=== PATIENT | female | born 1960 | race Caucasian/White ===

== ENCOUNTER 2018-05-05 11:37 | Emergency (ER) | payer BC ==
--- NOTE | 2018-05-05 12:37 | ED ---
Neck Pain - HPI Summary HPI Summary: This is scribe Mikael Salas documenting for attending Dr. Enoch Barillas MD. This patient is a 58 year old F presenting to [facility] accompanied by a male with a chief complaint of worsening right sided neck pain radiating to her back, right shoulder, and right arm since yesterday. Pt reports she has been having this pain intermittently since 8 days ago but was treating with Ibuprofen 800mg BID. The pain is no longer treatable with only Ibuprofen. The patient rates the pain 6/10 in severity. Symptoms aggravated by leaning head backwards or forwards , worse at night. Symptoms alleviated by sitting upright. Patient reports right shoulder achiness and numbness in right hand. Patient denies decreased ROM. 5 years ago the pt had left sided neck pain during pilates, was seen and had degenerative changes in cervical vertebrae and a narrowed disc. Pt reports that this pain is not as bad as the pain shes having currently. Pt has an appointment with her PCP in 4 days, didnt want to wait to be seen. Pt lives in [place] and is visiting family on [facility]. PMHX arthritis of neck. [employer]. Pt stopped using Ibuprofen last night. I, Dr. Barillas, personally performed the services described in this documentation as scribed in my presence and it is both accurate and complete. - History of Current Complaint Chief Complaint: EDNeckComplaint Stated Complaint: NECK PAIN Time Seen by Provider: 05/05/18 12:23 Hx Obtained From: Patient Onset/Duration Of Injury/Symptoms: Days - 8 Mechanism Of Injury: No Known Trauma Timing: Intermittent Onset/Duration: Gradual Onset Severity Initially: Moderate Severity Currently: Moderate Pain Intensity: 6 Pain Scale Used: 0-10 Numeric Location: Discrete At: - rt side Character: Sharp Aggravating Factors: Position Alleviating Factors: Position Related History: Previous Neck Injury - left side - Allergies/Home Medications Allergies/Adverse Reactions: Allergies Allergy/AdvReac Type Severity Reaction Status Date / Time No Known Allergies Allergy Verified 05/05/18 12:00 Home Medications: Home Medications Esomeprazole(NF) [Nexium(NF)] 40 mg PO DAILY PRN 05/05/18 [History Confirmed 07/13] Magnesium Citrate 1 tab PO DAILY 05/05/18 [History Confirmed 05/05/18] Multivitamins/Minerals TAB* [Theragran/minerals TAB*] 1 tab PO DAILY 05/05/18 [ History Confirmed 05/05/18] ZyrTEC 10 MG TAB* 10 mg PO DAILY 05/05/18 [History Confirmed 05/05/18] PMH/Surg Hx/FS Hx/Imm Hx History: Denies: Hx Dialysis Musculoskeletal History: Reports: Hx Arthritis Infectious Disease History: No Infectious Disease History: Denies: Traveled Outside the [place] in Last 30 Days - Family History Known Family History: Positive: Other - arthritis - Social History Alcohol Use: Occasionally Alcohol Amount: twice a week Substance Use Type: Reports: None Smoking Status (MU): Never Smoked Tobacco Review of Systems Negative: Fever Positive: Other - right neck pain, back pain, right arm pain, right shoulder pain Positive: Numbness - right hand All Other Systems Reviewed And Are Negative: Yes Physical Exam - Summary Physical Exam Summary: Appearance: The patient is well-nourished in no acute distress and in no acute pain. Skin: The skin is warm and dry and skin color reflects adequate perfusion. HEENT: The head is normocephalic and atraumatic. The pupils are equal and reactive. The conjunctivae are clear and without drainage. Nares are patent and without drainage. Mouth reveals moist mucous membranes and the throat is without erythema and exudate. The external ears are intact. The ear canals are patent and without drainage. The tympanic membranes are intact. Neck: The neck is supple with full range of motion and non-tender. There are no carotid bruits. There is no neck vein distension. Respiratory: Chest is non-tender. Lungs are clear to auscultation and breath sounds are symmetrical and equal. Cardiovascular: Heart is regular rate and rhythm. There is no murmur or rub auscultated. There is no peripheral edema and pulses are symmetrical and equal. Abdomen: The abdomen is soft and non-tender. There are normal bowel sounds heard in all four quadrants and there is no organomegaly palpated. Musculoskeletal: There is no back tenderness noted. Extremities are non-tender with full range of motion. There is good capillary refill. There is no peripheral edema or calf tenderness elicited. Neurological: Patient is alert and oriented to person, place and time. The patient has symmetrical motor strength in all four extremities. Cranial nerves are grossly intact. Deep tendon reflexes are symmetrical and equal in all four extremities. Psychiatric: The patient has an appropriate affect and does not exhibit any anxiety or depression. Triage Information Reviewed: Yes Vital Signs On Initial Exam: Initial Vitals Temp Pulse Resp BP Pulse Ox 98.8 F 62 16 145/83 98 05/05/18 11:53 05/05/18 11:53 05/05/18 11:53 05/05/18 11:53 05/05/18 11:53 Vital Signs Reviewed: Yes Diagnostics - Vital Signs Vital Signs Temp Pulse Resp BP Pulse Ox 05/05/18 11:53 98.8 F 62 16 145/83 98 - Laboratory Lab Statement: Any lab studies that have been ordered have been reviewed, and results considered in the medical decision making process. 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 They are traveling and staying locally in the area for a few more days. She was tender to palpation and I suspect that this is some cervical strain with some radicular pain and recommended adding Ativan as a muscle relaxer at night to the anti-inflammatory she is already taking. - Diagnoses Provider Diagnoses: Cervical strain Discharge - Sign-Out/Discharge Documenting (check all that apply): Patient Departure - discharge - Discharge Plan Condition: Stable Disposition: HOME Prescriptions: LORazepam TAB(*) [Ativan TAB(*)] 1 mg PO BEDTIME PRN #10 tab MDD 4 PRN Reason: Pain Patient Education Materials: Cervical Strain (ED) Referrals: [facility] REFERRAL [Outside] Additional Instructions: RETURN TO THE EMERGENCY DEPARTMENT FOR CHANGING OR WORSENING SYMPTOMS - Billing Disposition and Condition Condition: STABLE Disposition: Home
[2018-05-05 13:05] VITALS: BP 126/78
== END 2018-05-05 13:04 | disposition home or self-care (01) ==
LOC: ED 11:37
DX: S16.1XXA Strain of muscle, fascia and tendon at neck level, initial encounter (principal); X58.XXXA Exposure to other specified factors, initial encounter; Y92.9 Unspecified place or not applicable; M47.812 Spondylosis without myelopathy or radiculopathy, cervical region
CPT/HCPCS: 99282